=== PATIENT | female | born 1995 | race Caucasian/White ===

== ENCOUNTER 2017-10-24 11:15 | Outpatient (CLI) | payer MEDICAID ==
[~2017-10-24] VITALS: Ht 170.2 cm; Wt 109.0 kg
[~2017-10-24 11:15] MED LIST: IBUP200T49 PO; OXYC-302 PO; SULF1TAB24 PO
[2017-10-24 11:34] VITALS: BP 140/86
[2017-10-24] MEDS ORDERED: PREN-3 PO (11:41)
[2017-10-24 12:30] LABS: MICROSCOPIC AUTO
[2017-10-24 12:39] LABS: AMPHETAMINE SCREEN, URINE Negative (Negative); BARBITURATE SCREEN, URINE Negative (Negative); BENZODIAZEPINE SCREEN, URINE Negative (Negative); CANNABINOID SCREEN, URINE Negative (Negative); COCAINE SCREEN, URINE Negative (Negative); METHADONE SCREEN, URINE Negative (Negative); OPIATE SCREEN, URINE Negative (Negative)
[2017-10-24 13:40] LABS: BASOPHILS # (AUTO) 0.01 x10^3/uL (0-0.1); BASOPHILS % (AUTO) 0 % (0-1); EOSINOPHILS # (AUTO) 0.06 x10^3/uL (0-0.4); EOSINOPHILS % (AUTO) 1 % (1-7); LYMPHOCYTES # (AUTO) 2.33 x10^3/uL (1-3.4); LYMPHOCYTES % (AUTO) 20 % (22-44); MD NO; MEAN CORPUSCULAR HEMOGLOBIN 28.1 pg (27.0-34.8); MEAN CORPUSCULAR HGB CONC 33.8 g/dL (32.4-35.8); MEAN CORPUSCULAR VOLUME 83.1 fL (80-100); MEAN PLATELET VOLUME 7.8 fL (7.4-10.4); MONOCYTES # (AUTO) 0.72 x10^3/uL (0.2-0.8); MONOCYTES % (AUTO) 6 % (2-9); NEUTROPHILS # (AUTO) 8.41 x10^3/uL (1.8-6.8); NEUTROPHILS % (AUTO) 73 % (42-75); PLATELET COUNT 261 x10^3/uL (130-400); RED BLOOD COUNT 4.38 x10^6/uL (3.82-5.3); RED CELL DISTRIBUTION WIDTH 16.1 % (9.6-15.2)
[2017-10-24 13:54] LABS: PROTEIN/CREATININE RATIO,URINE < 373 (0-200); TOTAL PROTEIN,URINE RANDOM < 5 mg/dL (0-12)
[2017-10-24 14:05] LABS: ALANINE AMINOTRANSFERASE 16 U/L (12-78); ALBUMIN 2.5 g/dL (3.4-5.0); ANION GAP 9 mmol/L (5-15); CALCIUM 8.5 mg/dL (8.5-10.1); CHLORIDE 109 mmol/L (98-107)
[2017-10-24 14:06] LABS: BILIRUBIN, DIRECT < 0.1 mg/dL (0.1-0.2)
[2017-10-24 14:08] LABS: ALKALINE PHOSPHATASE 153 U/L (45-117); BILIRUBIN,TOTAL 0.5 mg/dL (0.2-1.0); TOTAL PROTEIN 6.6 g/dL (6.4-8.2)
== END 2017-10-24 14:45 | disposition home or self-care (01) ==
LOC: LDOP 11:15
PROVIDERS: ATTEND Obstetrics & Gynecology
DX: Z34.83 Encounter for supervision of other normal pregnancy, third trimester (principal); Z3A.40 40 weeks gestation of pregnancy
CPT/HCPCS: 36415; 59025; 76805; 80053; 80307; 81001; 82248; 82570; 84156; 84550; 85025; 86592; 86703; 86762; 86850; 86900; 87077; 87081; 87086; 87186; 87340; 87899; 99201; 99211; G0435; G0463

== ENCOUNTER 2017-10-25 16:28 | Inpatient (IN) | payer MEDICAID ==
[~2017-10-25] VITALS: Ht 170.2 cm; Wt 110.4 kg
[~2017-10-25 16:28] MED LIST changes: +PREN-3 PO
[2017-10-28] MEDS ORDERED: OXYTOCIN 30U/ 0.9% NaCL 500ML 500 ML IV ONE (06:20)
[2017-10-28] MEDS ORDERED: OXYTOCIN 30U/ 0.9% NaCL 500ML 500 ML IV PRN (06:20)
[2017-10-28 06:30] VITALS: BP 143/71
[2017-10-28] MEDS ORDERED: FENTANYL PF 100 MCG/2ML IV PRN (06:30)
[2017-10-28] MEDS ORDERED: FENTANYL PF 100 MCG/2ML IVPush PRN (06:30)
[2017-10-28] MEDS ORDERED: ALUMINUM/MAG/SIMETHICONE 30 ML UDC PO PRN (06:30)
[2017-10-28] MEDS ORDERED: ONDANSETRON 2MG/ML, 2ML IVPush PRN (06:30)
[2017-10-28] MEDS ORDERED: TERBUTALINE 1 MG/ML, 1ML IVPush PRN (06:30)
[2017-10-28] MEDS: LACTATED RINGERS 1,000 ML IV SCH ×3 (06:41→14:58)
[2017-10-28 07:01] LABS: AMPHETAMINE SCREEN, URINE Negative (Negative); BARBITURATE SCREEN, URINE Negative (Negative); BENZODIAZEPINE SCREEN, URINE Negative (Negative); CANNABINOID SCREEN, URINE Negative (Negative); COCAINE SCREEN, URINE Negative (Negative); METHADONE SCREEN, URINE Negative (Negative); OPIATE SCREEN, URINE Negative (Negative)
[2017-10-28] MEDS ORDERED: OXYTOCIN 30U/ 0.9% NaCL 500ML 500 ML ONE ×2 (07:19→23:14)
[2017-10-28 07:36] LABS: BASOPHILS # (AUTO) 0.03 x10^3/uL (0-0.1); BASOPHILS % (AUTO) 0 % (0-1); EOSINOPHILS # (AUTO) 0.09 x10^3/uL (0-0.4); EOSINOPHILS % (AUTO) 1 % (1-7); LYMPHOCYTES # (AUTO) 2.44 x10^3/uL (1-3.4); LYMPHOCYTES % (AUTO) 22 % (22-44); MD NO; MEAN CORPUSCULAR HEMOGLOBIN 28.7 pg (27.0-34.8); MEAN CORPUSCULAR HGB CONC 34.2 g/dL (32.4-35.8); MEAN CORPUSCULAR VOLUME 83.9 fL (80-100); MEAN PLATELET VOLUME 8.4 fL (7.4-10.4); MONOCYTES # (AUTO) 0.79 x10^3/uL (0.2-0.8); MONOCYTES % (AUTO) 7 % (2-9); NEUTROPHILS # (AUTO) 7.84 x10^3/uL (1.8-6.8); NEUTROPHILS % (AUTO) 70 % (42-75); PLATELET COUNT 235 x10^3/uL (130-400); RED CELL DISTRIBUTION WIDTH 15.8 % (9.6-15.2)
[2017-10-28 07:38] VITALS: BP 118/70
[2017-10-28] MEDS ORDERED: NEWBORN KIT ONE (08:45)
[2017-10-28] MEDS ORDERED: BUPIVACAINE/PF 0.25% ONE (13:15)
[2017-10-28] MEDS ORDERED: FENTANYL/BUPIV./NS/PF 250 ML EPIDCONT ONE (13:15)
[2017-10-28] MEDS ORDERED: LIDOCAINE 1%, 20ML ONE (20:16)
[2017-10-28] MEDS ORDERED: MISOPROSTOL 200 MCG TABLET ONE (20:16)
[2017-10-28] MEDS ORDERED: ONDANSETRON 2MG/ML, 2ML ONE (21:51)
[2017-10-28] MEDS: OXYTOCIN 30U/ 0.9% NaCL 500ML 500 ML IV SCH (23:16)
[2017-10-28] MEDS ORDERED: OXYTOCIN 10 UNITS/ML, 1ML IM PRN (23:30)
[2017-10-28] MEDS ORDERED: ONDANSETRON 2MG/ML, 2ML IV PRN (23:30)
[2017-10-28] MEDS ORDERED: AMPICILLIN 2 GM in SODIUM CHLORIDE 0.9% 50 ML IV ONE (23:30)
[2017-10-28] MEDS ORDERED: AMPICILLIN 2 GM IM ONE (23:30)
[2017-10-28] MEDS ORDERED: MISOPROSTOL 200 MCG TABLET PR PRN (23:30)
[2017-10-28] MEDS ORDERED: HYDROcodone/APAP 5/325 TABLET PO PRN ×2 (23:30)
[2017-10-28] MEDS ORDERED: METHYLERGONOVINE 0.2 MG/ML IM PRN (23:30)
[2017-10-28] MEDS ORDERED: CARBOPROST TROMETHAMINE 250 MCG/ML, 1ML IM PRN (23:30)
[2017-10-28] MEDS ORDERED: ACETAMINOPHEN 325 MG TABLET PO PRN (23:30)
[2017-10-29] MEDS ORDERED: IBUPROFEN 600 MG TABLET ONE (00:03)
[2017-10-29] MEDS: IBUPROFEN 600 MG TABLET PO PRN ×4 (00:04→23:03)
[2017-10-29 02:00] VITALS: BP 113/69
[2017-10-29 05:32] LABS: MICROSCOPIC INDICATED
[2017-10-29 05:37] VITALS: BP 122/72
[2017-10-29 07:10] VITALS: BP 120/75
[2017-10-29 07:10] LABS: BASOPHILS # (AUTO) 0.04 x10^3/uL (0-0.1); BASOPHILS % (AUTO) 0 % (0-1); EOSINOPHILS # (AUTO) 0.05 x10^3/uL (0-0.4); EOSINOPHILS % (AUTO) 0 % (1-7); LYMPHOCYTES # (AUTO) 2.27 x10^3/uL (1-3.4); LYMPHOCYTES % (AUTO) 18 % (22-44); MD NO; MEAN CORPUSCULAR HEMOGLOBIN 28.3 pg (27.0-34.8); MEAN CORPUSCULAR HGB CONC 33.9 g/dL (32.4-35.8); MEAN CORPUSCULAR VOLUME 83.6 fL (80-100); MEAN PLATELET VOLUME 7.8 fL (7.4-10.4); MONOCYTES # (AUTO) 0.77 x10^3/uL (0.2-0.8); MONOCYTES % (AUTO) 6 % (2-9); NEUTROPHILS # (AUTO) 9.45 x10^3/uL (1.8-6.8); NEUTROPHILS % (AUTO) 75 % (42-75); PLATELET COUNT 196 x10^3/uL (130-400); RED BLOOD COUNT 3.81 x10^6/uL (3.82-5.3)
[2017-10-29 07:20] LABS: ALANINE AMINOTRANSFERASE 12 U/L (12-78); ALBUMIN 2.1 g/dL (3.4-5.0); ANION GAP 6 mmol/L (5-15); CHLORIDE 110 mmol/L (98-107)
[2017-10-29 07:22] LABS: ALKALINE PHOSPHATASE 127 U/L (45-117); BILIRUBIN,TOTAL 0.4 mg/dL (0.2-1.0); CREATININE 0.53 mg/dL (0.55-1.02); TOTAL PROTEIN 5.6 g/dL (6.4-8.2)
[2017-10-29 07:28] LABS: BILIRUBIN, DIRECT < 0.1 mg/dL (0.1-0.2)
[2017-10-29] MEDS: PRENATAL VIT/IRON/FA 1 EACH TABLET PO SCH (08:01)
[2017-10-29] MEDS: DOCUSATE 100 MG CAPSULE PO PRN (08:01)
[2017-10-29] MEDS: NITROFURANTOIN (MACROBID) 100 MG CAPSULE PO SCH ×2 (08:02→21:04)
[2017-10-29] MEDS: OXYTOCIN 30U/ 0.9% NaCL 500ML 500 ML IV SCH ×2 (09:03→19:03)
[2017-10-29 11:45] VITALS: BP 129/75
[2017-10-29 16:43] VITALS: BP 132/74
[2017-10-29 21:00] VITALS: BP 139/83
[2017-10-30] MEDS: OXYTOCIN 30U/ 0.9% NaCL 500ML 500 ML IV SCH (05:03)
[2017-10-30] MEDS: IBUPROFEN 600 MG TABLET PO PRN (07:41)
[2017-10-30] MEDS: PRENATAL VIT/IRON/FA 1 EACH TABLET PO SCH (07:41)
[2017-10-30] MEDS: DOCUSATE 100 MG CAPSULE PO PRN (07:41)
[2017-10-30] MEDS: NITROFURANTOIN (MACROBID) 100 MG CAPSULE PO SCH (07:41)
[2017-10-30 08:51] VITALS: BP 138/76
[2017-10-30] MEDS ORDERED: SENN-1 PO (11:18)
[2017-10-30] MEDS ORDERED: IBUP-1223 PO (11:18)
== END 2017-10-30 13:20 | disposition home or self-care (01) | DRG 775 ==
LOC: LDIP 10-28 06:15 → 2NW 10-29 01:44
PROVIDERS: ADMIT Obstetrics & Gynecology; ATTEND Obstetrics & Gynecology
PROC: 10E0XZZ Delivery of Products of Conception, External Approach (ICD-10-PCS; principal; 2017-10-28)
PROC: 10907ZC Drainage of Amniotic Fluid, Therapeutic from Products of Conception, Via Natural or Artificial Opening (ICD-10-PCS; 2017-10-28)
PROC: 3E0R3BZ Introduction of Anesthetic Agent into Spinal Canal, Percutaneous Approach (ICD-10-PCS; 2017-10-28)
PROC: 00HU33Z Insertion of Infusion Device into Spinal Canal, Percutaneous Approach (ICD-10-PCS; 2017-10-28)
DX: O13.4 Gestational [pregnancy-induced] hypertension without significant proteinuria, complicating childbirth (principal); E66.9 Obesity, unspecified; O48.0 Post-term pregnancy; O99.214 Obesity complicating childbirth; O77.0 Labor and delivery complicated by meconium in amniotic fluid; O76 Abnormality in fetal heart rate and rhythm complicating labor and delivery; Z37.0 Single live birth; Z3A.41 41 weeks gestation of pregnancy; Z68.38 Body mass index [BMI] 38.0-38.9, adult
CPT/HCPCS: 36415; 80053; 80307; 81001; 82248; 82570; 82803; 84156; 84550; 85025; 86850; 86900; J0290; J2405; J2590; J7120